=== PATIENT | male | born 1950 | race Caucasian/White ===

== ENCOUNTER 2017-09-15 15:55 | Emergency (ER) | payer OTHER ==
[~2017-09-15] VITALS: Ht 180.3 cm; Wt 75.0 kg
[~2017-09-15 15:55] MED LIST: METH10TA PO
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
[2017-09-15] MEDS ORDERED: MORPHINE SULFATE 4 MG/ML INJ IV PUSH ONE (16:30)
[2017-09-15] MEDS ORDERED: SODIUM CHLOR 0.9% 1000 ML INJ 1,000 ML IV ONE (16:30)
[2017-09-15 17:01] VITALS: BP 162/80; PULSE 69; RESP 14; TEMP 98.3; O2SAT 98
[2017-09-15 17:21] LABS: AUTOMATED NEUTROPHIL # 4.5 TH/MM3 (1.8-7.7); BASOPHIL % 0.2 % (0.0-2.0); EOSINOPHIL % 0.1 % (0.0-4.0); HEMATOCRIT 35.8 % (39.0-51.0); HEMOGLOBIN 12.2 GM/DL (13.0-17.0); LYMPHOCYTE # 1.4 TH/MM3 (1.0-4.8); MEAN CELL VOLUME 80.5 FL (80.0-100.0); MEAN CORPUSCULAR HEMOGLOBIN 27.5 PG (27.0-34.0); MEAN CORPUSCULAR HGB CONC 34.2 % (32.0-36.0); MONO % 6.3 % (0.0-8.0); MONOCYTE # 0.4 TH/MM3 (0-0.9); NEUT % 71.4 % (16.0-70.0); PLATELET COUNT 177 TH/MM3 (150-450); RED BLOOD COUNT 4.45 MIL/MM3 (4.50-5.90); RED CELL DISTRIBUTION WIDTH 13.2 % (11.6-17.2); WHITE BLOOD COUNT 6.2 TH/MM3 (4.0-11.0)
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
[2017-09-15 17:40] LABS: INTERNATIONAL NORMALIZED RATIO 1.1 RATIO; PROTHROMBIN TIME - PATIENT 10.9 SEC (9.8-11.6)
[2017-09-15 17:48] LABS: BICARBONATE 25.5 MEQ/L (21.0-32.0); CREATININE 1.34 MG/DL (0.60-1.30)
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
[2017-09-15] MEDS ORDERED: IOHEXOL 350 MG/ML 10 ML VIAL (for RAD DIAG) IVCONTRAST ONE (18:29)
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
[2017-09-15] MEDS ORDERED: ROBA500T PO (19:17)
[2017-09-15] MEDS ORDERED: IBUP-232 PO (19:17)
== END 2017-09-15 20:30 | disposition home or self-care (01) ==
LOC: NEPC 15:55
DX: S09.90XA Unspecified injury of head, initial encounter (principal); S27.322A Contusion of lung, bilateral, initial encounter; R16.1 Splenomegaly, not elsewhere classified; M54.2 Cervicalgia; V13.4XXA Pedal cycle driver injured in collision with car, pick-up truck or van in traffic accident, initial encounter; Y93.55 Activity, bike riding; Y92.410 Unspecified street and highway as the place of occurrence of the external cause
CPT/HCPCS: 70450; 71260; 72125; 73590; 74177; 80048; 85025; 85610; 85730; 94150; 96374; 99285; J2270; J7030; Q9967